=== PATIENT | male | born 1960 | race Caucasian/White ===

== ENCOUNTER → 2018-10-03 14:46 | Outpatient (CLI) | payer OTHER, SELFPAY ==
[2018-10-03 16:14] LABS: PSA,Total - Annual Screen 1.02 ng/mL (0.00-4.00)
== END ==
PROVIDERS: Family Provider Family Medicine; PCP Family Medicine; Visit Provider Family Medicine
DX: Z00.00 Encounter for general adult medical examination without abnormal findings (principal); N52.9 Male erectile dysfunction, unspecified
CPT/HCPCS: 36415; 84153; 84403; G0103

== ENCOUNTER → 2021-09-07 09:46 | Outpatient (CLI) | payer BC, SELFPAY ==
[2021-09-07 13:59] LABS: Anion Gap 7 (5-15); BUN 17 mg/dL (7-18); BUN/Creat Ratio 19.2 RATIO (10-20); Calcium,Total 8.9 mg/dL (8.5-10.1); Chloride 106 mmol/L (98-107); Cholesterol 215 mg/dL (200); Creatinine, Serum 0.88 mg/dL (0.70-1.30); EST Glomerular Filtration Rate 93 mL/min (>60); Est Glom Filt Rate - Afr Amer 113 mL/min (>60); Glucose 99 mg/dL (74-106); High Density Lipoprotein 43 mg/dL; Potassium 4.3 mmol/L (3.5-5.1); Sodium Level 140 mmol/L (136-145); Triglycerides 156 mg/dL; Very Low Density Lipoprotein 31 mg/dL (5-40)
== END ==
PROVIDERS: PCP Family Medicine; Visit Provider Nurse Practitioner Family
DX: Z13.1 Encounter for screening for diabetes mellitus (principal); Z13.220 Encounter for screening for lipoid disorders; Z12.5 Encounter for screening for malignant neoplasm of prostate
CPT/HCPCS: 36415; 80048; 80061; 84153; G0103

== ENCOUNTER 2022-02-26 08:09 | Day surgery (SDC) | payer BC, SELFPAY ==
--- NOTE | 2022-02-26 08:28 | H&P.OPEN ---
HPI - General HPI Narrative CECIL RICK, is a 61 M who presents for screening colonoscopy. Patient's last colonoscopy was over 11 years ago within normal limits. Patient denies any family history of colon cancer, nausea, chronic abdominal pain, vomiting, reflux. Patient has bowel moods daily denies any blood. [facility] Medical History (Updated 02/21/22 @ 10:05 by Emi Snell) Wears contact lenses Home Medications NK 02/21/22 [History Last Taken Unknown] Allergy/AdvReac Type Severity Reaction Status Date / Time No Known Allergies Allergy Verified 02/21/22 10:01 Surgical History (Updated 02/21/22 @ 10:05 by Emi Snell) Hx of colonoscopy Hx of hernia repair Social History Smoking Status: Never smoker Past Medical/Surgical History Planned Operation Planned Operative Procedure/s: Colonoscopy Previous Hospitalizations/Surgeries HX Hospitalizations: No Any Problems With Anesthesia: No You/Your Family Experience Fever (Hyperthermia) With Anes: No Cholinesterase deficiency: No Cardiovascular Hx of Irregular Heartbeat and/or Afib: No Hx Heart Attack: No Hx Congestive Heart Failure: No Hx Hypertension: No Hx Pacemaker: No Respiratory Hx Chronic Obstructive Pulmonary Disease (COPD): No Hx Asthma: No Hx Emphysema: No Hx Sleep Apnea: No Hx Respiratory Tract Infection/Cold (presently): No Do You Snore Loudly (louder than talking or can be heard): No Do You Often Feel Tired/ Fatigued/ Sleepy Dring Daytime?: No Has Anyone Observed You Stop Breathing During Sleep?: No Result (for STOP score): Negative Smoking Status: Never smoker Gastrointestinal Hx Gastroesophageal Reflux: No Hx Ulcer: No Neurological Hx Seizures: No Hx Headaches: No Does patient have nerve stimulator: No Allergies No Known Allergies Allergy (Verified 02/21/22 10:01) Discharge Is Pt Admitted From a [facility], or a [facility]: No After D/C, Where Do you Plan to Go: Return Home Physical Exam Const alert, oriented x3 and no apparent distress HEENT normocephalic and head/scalp atraumatic Resp normal respiratory effort Cardio regular rate GI soft to palpation and non-tender; Negative for non-distended Palpation: Negative for guarding Extremity no clubbing, cyanosis or edema Neuro CN's II-XII intact bilaterally Psych mental status grossly normal Assessment & Plan Assessment/Plan (1) Encounter for screening for malignant neoplasm of colon: Surgery Risks - Colonoscopy Risks Include but are not Limited To: Risks include but are not limited to: Bleeding, perforation requiring further surgery, inability to complete colonoscopy requiring barium enema.
[2022-02-26 08:45] VITALS: BP 131/78; PULSE 67; RESP 16; TEMP 36.6; O2SAT 99; BMI 28.8
[2022-02-26] MEDS: Lactated Ringers 1,000 ML 15 ML IV (08:48)
[2022-02-26 09:40] VITALS: BP 131/78; BP 91/65; PULSE 65; RESP 14; TEMP 36.8; O2SAT 95
--- NOTE | 2022-02-26 09:41 | OP.COLON_ITS ---
Patient Name: Alex Domínguez Procedure Date: 02/26/2022 9:05 AM Date of : 1960 Age: 61 Procedure: Colonoscopy Indications: Screening for colorectal malignant neoplasm Providers: Nirmala Lozoya MD Medicines: Monitored Anesthesia Care Patient Profile: This is a 61 year old male. Last Colonoscopy: more than 10 years ago. Complications: No immediate complications. Procedure: Pre-Anesthesia Assessment: - Prior to the procedure, a History and Physical was performed, and patient medications and allergies were reviewed. The patient's tolerance of previous anesthesia was also reviewed. The risks and benefits of the procedure and the sedation options and risks were discussed with the patient. All questions were answered, and informed consent was obtained. Prior Anticoagulants: The patient has taken no previous anticoagulant or antiplatelet agents. ASA Grade Assessment: Per anesthesia. After reviewing the risks and benefits, the patient was deemed in satisfactory condition to undergo the procedure. After I obtained informed consent, the scope was passed under direct vision. Throughout the procedure, the patient's blood pressure, pulse, and oxygen saturations were monitored continuously. The colonoscope was introduced through the anus and advanced to the cecum, identified by appendiceal orifice and ileocecal valve. The colonoscopy was performed without difficulty. The patient tolerated the procedure well. The quality of the bowel preparation was good. Scope In: 9:11:04 AM Scope Withdrawal Time 0 hours 10 minutes 32 seconds Scope Out: 9:33:48 AM Total Procedure Duration Time 0 hours 22 minutes 44 seconds Findings: A single small-mouthed diverticulum was found in the sigmoid colon. The entire examined colon appeared normal on direct and retroflexion views. Non-bleeding internal hemorrhoids were found. The hemorrhoids were Grade I (internal hemorrhoids that do not prolapse). Impression: - Diverticulosis in the sigmoid colon. - The entire examined colon is normal on direct and retroflexion views. - Non-bleeding internal hemorrhoids. - No specimens collected. Recommendation: - Discharge patient to home. - High fiber diet. - Continue present medications. - Repeat colonoscopy in 10 years for screening purposes. Procedure Code(s): --- Professional --- G0121, Colorectal cancer screening; colonoscopy on individual not meeting criteria for high risk Diagnosis Code(s): --- Professional --- Z12.11, Encounter for screening for malignant neoplasm of colon K64.0, First degree hemorrhoids K57.30, Diverticulosis of large intestine without perforation or abscess without bleeding CPT copyright 2017 [employer]. All rights reserved. The codes documented in this report are preliminary and upon insurance coder review may be revised to meet current compliance requirements. MD Nirmala Patel MD 02/26/2022 9:40:43 AM This report has been signed electronically. Number of Addenda: 0 Note Initiated On: 02/26/2022 9:05 AM
--- NOTE | 2022-02-26 09:42 | OP.CCLET_ITS ---
02/26/2022 Josefa Wild [address] [place] [address] Re : Colonoscopy procedure for Alex Domínguez Dear Dr. Wild This procedure was performed on Saturday, February 26, 2022. My impressions and recommendations are as follows: Impressions : - Diverticulosis in the sigmoid colon. - The entire examined colon is normal on direct and retroflexion views. - Non-bleeding internal hemorrhoids. - No specimens collected. Recommendations : - Discharge patient to home. - High fiber diet. - Continue present medications. - Repeat colonoscopy in 10 years for screening purposes. My findings are described in the full procedure note, which is enclosed. If I can be of further assistance, please feel free to contact me at Doctor phone number(s): , Work: . Sincerely, MD Nirmala Patel MD 02/26/2022 9:40:43 AM This report has been signed electronically.
[2022-02-26 09:50] VITALS: BP 131/78; BP 98/65; PULSE 57; RESP 14; O2SAT 97
[2022-02-26 09:55] VITALS: BP 100/62; BP 131/78; PULSE 55; RESP 14; O2SAT 100
[2022-02-26 10:00] VITALS: BP 101/71; BP 131/78; PULSE 60; RESP 14; TEMP 36.2; O2SAT 100
[2022-02-26 10:26] VITALS: BP 131/78
== END 2022-02-26 10:35 | disposition home or self-care (01) ==
LOC: EN 08:11 → AC 08:12
PROVIDERS: PCP Family Medicine; Referring Provider Family Medicine; Visit Provider Surgery
PROC: 0DJD8ZZ Inspection of Lower Intestinal Tract, Via Natural or Artificial Opening Endoscopic (ICD-10-PCS; CPT 45378; principal; 2022-02-26 09:10)
DX: Z12.11 Encounter for screening for malignant neoplasm of colon (principal); K57.30 Diverticulosis of large intestine without perforation or abscess without bleeding; K64.0 First degree hemorrhoids
CPT/HCPCS: 45378; J7120; J2405

== ENCOUNTER → 2023-02-22 | Outpatient (CLI) | payer BC, SELFPAY ==
[2023-02-22 18:35] LABS: PSA,Total - Annual Screen 1.87 ng/mL (0.00-4.00)
== END | disposition home or self-care (01) ==
LOC: MFPLAB 16:11
PROVIDERS: PCP Family Medicine; Visit Provider Family Medicine
DX: Z02.4 Encounter for examination for driving license (principal)
CPT/HCPCS: 36415; 84153; G0103

== ENCOUNTER 2025-06-24 16:26 | Outpatient (CLI) | payer BC, SELFPAY ==
--- NOTE | 2025-06-24 16:31 | RAD_ITS ---
PROCEDURE: RAD/Hand Min 3 Views
== END 2025-06-24 23:59 | disposition home or self-care (01) ==
LOC: MTRAD 16:29
PROVIDERS: PCP Family Medicine; Referring Provider Family Medicine; Visit Provider Family Medicine
DX: S61.215A Laceration without foreign body of left ring finger without damage to nail, initial encounter (principal); X58.XXXA Exposure to other specified factors, initial encounter
CPT/HCPCS: 73130

== ENCOUNTER → 2025-07-31 | Outpatient (CLI) | payer BC, SELFPAY ==
--- OUTSIDE RECORDS SUMMARY | 2025-07-31 09:52 | XMS RPT_ITS | CCD ---
Author Organization [facility] Providers Care Batch Roller Operator Name Role Phone Dr. Josefa Wild Primary Care Provider Dr. Josefa Wild Referring Provider Dr. Nirmala Lozoya Attending Provider [phone] Dr. Nirmala Lozoya Other Provider [phone] Rm Doherty Referring Unavailable Rm Doherty Attending Unavailable Rm Doherty Primary Care Unavailable Problems Problem Classification Problem Date Documented Da te Episodic/Chronic Open wounds of extremities (1 source) Laceration without foreign body of unspecified finger without damage to nail, initial encounter; Translations: [Laceration without foreign body of unspecified finger without damage to nail, initial encounter] Onset: 07-05-2025 Episodic Other screening for suspected conditions (not mental disorders or infectious disease) (3 sources) Patient encounter status; Translations: [Encounter for screening for malignant neoplasm of colon] Episodic Results Test Name Value Interpretation Reference Range Facility Hand Min 3 Viewson Hand Min 3 Views [facility] Imaging Services [address] [place], [place] [address] Hand Min 3 Views MR#: [id number] Acct: [id number] Name: CECIL RICK Rep #: [id number] : 1960 M 64 From: Val Torres MD PCP: Dr. Rm Doherty MD Status: REG CLI Study: Hand Min 3 Views Date of Exam: 06/24/25 Exam# [id number] Ordering Dr: Rm Doherty PROCEDURE: HAND MIN 3 VIEWS 06/24/2025 REASON FOR EXAM: L 4TH FINGER. MID DIGIT FX 06/14 TECHNIQUE: Procedure Code: SAMEERA Modality: DX Procedure: HAND MIN 3 VIEWS Laterality: Left COMPARISON: None. FINDINGS: BONES: Comminuted fracture in the 4th middle phalanx extending from the proximal to distal articular surfaces. JOINTS: No dislocation. Mild arthritic changes in the 1st carpometacarpal joint. Minimal spurring along a few interphalangeal joints. SOFT TISSUES: Diffuse 4th finger soft tissue swelling. RAD/Hand Min 3 Views IMPRESSION: Comminuted 4th middle phalanx fracture. Reading Location: [facility] CC: Dr. Rm Doherty MD Transmission Systems Operator: Signed Normal [facility] No Panel InformationOrdered By: Dr. Wild on 02-22-2023 Prostate Specific Antigen Screen 1.87 ng/mL 0.00-4.[address] [facility] Comment on above: This test was perfor med using the TPSA assay method for theGoombal chemistry system. Values obtained with differentassay methods cannot be used interchangably.When changing PSA assays in the course of monitoring apatient, additional sequential testing should be carriedout to confirm baseline values. Vital Signs Date Time Vital Sign Value Performing Clinician Malinda wolf 02-26-2022 10:00-0400 Body temperature 97.2 [degF] Dr. Josefa Wild Work Phone: [facility] Work Phone: 02-26-2022 10:00-0400 Diastolic blood pressure 71 mm[Hg] Dr. Josefa Wild Work Phone: [facility] Work Phone: 02-26-2022 10:00-0400 Heart rate 60 /min Dr. Josefa Wild Work Phone: [facility] Work Phone: 02-26-2022 10:00-0400 Respiratory rate 14 /min Dr. Josefa Wild Work Phone: [facility] Work Phone: 02-26-2022 10:00-0400 SaO2% (BldA) [Mass fraction] 100 % Dr. Josefa Wild Work Phone: [facility] Work Phone: 02-26-2022 10:00-0400 Systolic blood pressure 101 mm[Hg] Dr. Josefa Wild Work Phone: [facility] Work Phone: 02-26-2022 08:45-0400 Body height 170.[address] Josefa Wild Work Phone: [facility] Work Phone: 02-26-2022 08:45-0400 Body mass index (BMI) [Ratio] 28.8 kg/m2 Dr. Josefa Wild Work Phone: [facility] Work Phone: 02-26-2022 08:45-0400 Body weight 83.[address] Josefa Wild Work Phone: [facility] Work Phone: Encounters Encounter Date Encounter Type Care Provider Facility Start: 06-24-2025 End: 06-24-2025 ambulatory [facility] Facility:[facility] Start: 02-22-2023 End: 02-22-[address] [facility] Work Phone: Start: 02-22-2023 End: 02-22-2023 Patient encounter procedure [facility] Start: 02-26-2022 Non-patient / Non-visit Dr. Natalia Wild Work Phone: [facility] Start: 02-26-2022 End: 02-26-2022 Admission to same day surgery center Dr. Josefa Wild Work Phone: [facility]-Endoscopy Procedures Date Procedure Procedure Detail Performing Clinician Start: 02-26-[address] Josefa hanna Work Phone: Plan of Treatment Date Care Activity Detail Author Start: 02-26-2022 Patient discharge [facility] Work Phone: Patient referral [facility] Work Phone: Payers Date Payer Category Payer Self-pay [id number] 2025 Unknown [id number] Unknown [id number] Unknown [id number] Social History Date Type Detail Facility Start: 02-26-2022 Tobacco smoking stat [facility] Unknown if ever smoked [facility] Start: 1960 Sex Assigned At Male [facility] Goals Date Patient Goal Desired Activity /State Mental Status Date Assessment Result Facility 02-26-2022 Cognitive function Voice/Name;Touch/Shaki ng [facility] Work Phone: Evaluation note Note Date & Type Note Facility Evaluation note Diagnosis Onset Date Encounter for screening for malignant neoplasm of colon acute [facility] Work Phone: Evaluation note Note Date & Type Note Facility Evaluation note No assessment information availa ble [facility] Work Phone: Advance Directives No Advanced Directives Records Found Advance Directive Response Recorded Date/ Time Living Will No February 21, 2022 10:05am Power of Manager Culture No February 21 10:05am Summary Purpose Family History No Family History Records Found Additional Source Comments Care Teams (unrecognized sec tion and content) Team Status: Active Member Role Status Dates Dr. Josefa Wild MD Family Provider Active Dr. Josefa Wild MD Primary Care Provider Active Team Status: Inactive Member Role Status Dates Dr. Josefa Wild MD Primary Care Provider, [facility] Provider Active Goals (unrecognized section and content) Goals may be documented in a n alternate section (unrecognized sect ion and content) No Status Records Found INFORMATION SOURCE (unrecogn ized section and content) DATE CREATED AUTHOR 07/06/2025 [facility] FOR RECORDS PERTAINING TO PATIENTS WHO ARE OR HAVE BEEN ENROLLED IN A CHEMICAL DEPENDENCY/SUBSTANCEABUSE PROGRAM, SOME INFORMATION MAY BE OMITTED. This clinical summary was aggregated from multiple sources. Caution should be exercised in using it in the provision of clinical care. This summary normalizes information from multiple sources, and as a consequence, information in this document may materially change the coding, format and clinical context of patient data. In addition, data may be omitted in some cases. CLINICAL DECISIONS SHOULD BE BASED ON THE PRIMARY CLINICAL RECORDS. [facility] [employer] [facility]. provides no warranty or guarantee of the accuracy or completeness of information in this document.
[2025-07-31 12:14] LABS: Anion Gap 8 (5-15); BUN 14 mg/dL (4-19); BUN/Creat Ratio 13.9 RATIO (10-20); Calcium,Total 9.4 mg/dL (7.6-11.0); Carbon Dioxide 26.4 mmol/L (21.0-32.0); Chloride 106 mmol/L (98-108); Cholesterol 217 mg/dL (<=200); Glucose 100 mg/dL (70-99); Low Density Lipoprotein Calc. 139 mg/dL; PSA,Total - Annual Screen 1.37 ng/mL (0.02-4.00); Potassium 4.8 mmol/L (3.3-5.1); Triglycerides 179 mg/dL; Very Low Density Lipoprotein 36 mg/dL (5-40); cholesterol:hdl ratio screen 4.69
== END | disposition home or self-care (01) ==
LOC: LAB 09:49
PROVIDERS: PCP Family Medicine; Referring Provider Family Medicine; Visit Provider Family Medicine
DX: Z13.220 Encounter for screening for lipoid disorders (principal); Z13.1 Encounter for screening for diabetes mellitus; Z12.5 Encounter for screening for malignant neoplasm of prostate
CPT/HCPCS: 36415; 80048; 80061; 84153; G0103